=== PATIENT | male | born 1990 | race Caucasian/White ===

== ENCOUNTER 2016-12-05 15:04 | Emergency (ER) | payer OTHER ==
[~2016-12-05 15:04] MED LIST: LISINOPRIL2.5 MG PO; NOVOLOG MI100 UNIT/2 SQ
== END 2016-12-05 17:45 | disposition home or self-care (01) ==
LOC: ER 15:04
DX: L02.511 Cutaneous abscess of right hand (principal); L03.113 Cellulitis of right upper limb; E11.9 Type 2 diabetes mellitus without complications; F17.210 Nicotine dependence, cigarettes, uncomplicated; Z79.84 Long term (current) use of oral hypoglycemic drugs
CPT/HCPCS: 36415; 96365; 96366; 96375; J1885; J3370

== ENCOUNTER 2016-12-06 13:39 | Emergency (ER) | payer OTHER | END 2016-12-06 19:00 | disposition home or self-care (01) | LOC: ER 13:39 | DX: Z48.01 Encounter for change or removal of surgical wound dressing (principal); F17.210 Nicotine dependence, cigarettes, uncomplicated; Z79.4 Long term (current) use of insulin ==